=== PATIENT | female | born 1980 | race Caucasian/White ===

== ENCOUNTER 2021-03-02 13:49 | Emergency (ER) | payer OTHER ==
[~2021-03-02 13:49] MED LIST: CEPHALEXIN500 MG PO
[2021-03-02] MEDS ORDERED: IMODIUM CAP 2 MG2 MG PO (17:14)
== END 2021-03-02 17:20 | disposition home or self-care (01) ==
LOC: ER1 13:49
DX: B34.9 Viral infection, unspecified (principal); Z20.822 Contact with and (suspected) exposure to COVID-19
CPT/HCPCS: 71045; 81001; 87086; 99284; U0002